=== PATIENT | male | born 1975 | race Caucasian/White ===

== ENCOUNTER 2016-12-30 09:54 | Emergency (ER) | payer SELFPAY ==
[2016-12-30 10:07] VITALS: BP 143/107; PULSE 92; RESP 16; TEMP 98.2; O2SAT 98
--- NOTE | 2016-12-30 10:13 | EDPHY ---
HPI/HX/ROS/PE/MDM Narrative: CHIEF COMPLAINT: Seeking rehab for heroin use HPI: The patient is a 41 y/o male arriving via EMS voluntarily seeking a rehab facility for recovery from heroin use. He has a history of alcoholism and polysubstance abuse including heroin and methamphetamine. His last heroin use was 5 days ago. [facility] was [facility] to [facility] last night, but found the [facility] is unable to provide the rehab support he is looking for. He is not seeking treatment for any symptoms in the ED. REVIEW OF SYSTEMS: Aside from elements discussed in the HPI, a comprehensive 10-point review of systems was reviewed and is negative. PMH: Pancreatitis, alcoholism, polysubstance abuse SOCIAL HISTORY: Heroin, methamphetamine, alcohol abuse. Medicaid. PHYSICAL EXAM: General:Patient is alert, in no acute distress. ENT:Eyes are normal to inspection. ENT inspection normal. Neck: Normal inspection. Full range of motion. Respiratory:No respiratory distress. Breath sounds normal bilaterally. Cardiovascular: Regular rate and rhythm. Strong peripheral pulses. Normal cap refill. Abdomen:The abdomen is nontender to palpation. There are no peritoneal signs. There are normal bowel sounds. Back: Normal to inspection. No tenderness to palpation. Skin: Normal color. No rash. Warm and dry. Extremities: Normal appearance. Full range of motion. Neuro: Oriented x3. Normal motor function. Normal sensory function. ED Course: This is a 41 y/o male with a history of polysubstance abuse who presents to the ED requesting resources for heroin rehab. His exam is benign. He has Medicaid, so we will involve the corrections caseworker to determine what resources may be available to him. hotel sales manager discussed resources with the patient. The patient became upset with the corrections caseworker and left the ED without formal discharge General Time Seen by Provider: 12/30/16 09:55 Initial Vital Signs: Initial Vital Signs Temperature (C) 36.8 C 12/30/16 10:03 Heart Rate 92 12/30/16 10:03 Respiratory Rate 16 12/30/16 10:03 Blood Pressure 143/107 H 12/30/16 10:03 O2 Sat (%) 98 12/30/16 10:03 O2 Delivery Mode Room Air Allergies/Adverse Reactions: No Known Allergies Allergy (Unverified 12/30/16 10:07) Home Medications: Medication Instructions Recorded LORazepam 12/30/16 Vyvanse 12/30/16 Departure - Departure Disposition: Against Medical Advice Clinical Impression: Heroin abuse Condition: Good Instructions: Narcotic Abuse (ED) Additional Instructions: Follow up with the resources provided. Avoid illicit drug abuse. Referrals: Patient,NotPresent [Primary Care Provider] - As per Instructions [facility],. [Clinic] - As per Instructions Report Scribed for: Denys Srinivasan Report Scribed by: Lilia Dooley Date of Report: 12/30/16 Time of Report: 10:15 Physician Review and Approval Statement: Portions of this note were transcribed by an ED scribe. I personally performed the history, physical exam, and medical decision making; and confirm the accuracy of the information in the transcribed note.
== END 2016-12-30 11:00 | disposition left against medical advice (07) ==
DX: F11.10 Opioid abuse, uncomplicated (principal)